=== PATIENT | male | born 1995 | race Caucasian/White ===

== ENCOUNTER 2023-09-26 17:39 | Emergency (ER) | payer OTHER ==
[2023-09-26 17:46] VITALS: BP 111/79; PULSE 111; RESP 20; TEMP 98.4; BMI 19.3
[2023-09-26] MEDS ORDERED: ACETAMINOPHEN INJECTION 100 ML IVPB ONE (19:30)
[2023-09-26] MEDS: ACETAMINOPHEN 1000 MG/100 ML BAG IVPB ONE (19:34)
[2023-09-26 19:45] LABS: BASO % 0.3 % (0-2.0); EOS % 0.6 % (0-4.5); HEMATOCRIT 33.2 % (35.4-49); HEMOGLOBIN 11.5 GM/dL (11.7-16.9); LYMPH % 16.3 % (8-40); MCH 27.9 pg (25.7-33.7); MCHC 34.5 g/dl (32.0-35.9); MEAN CELL VOLUME 80.8 fl (80-96); MEAN PLT VOLUME 7.3 fl (7.5-11.1); MONO % 12.7 % (3.8-10.2); NEUT % 70.1 % (42.8-82.8); PLATELET COUNT 390 10^3/uL (134-434); RBC 4.11 M/mm3 (4.00-5.60)
[2023-09-26 19:51] LABS: INR 1.22 (0.83-1.09); PROTHROMBIN TIME (PATIENT) 13.9 SEC (9.7-13.0)
[2023-09-26 19:53] LABS: POTASSIUM 4.2 mmol/L (3.5-5.1)
[2023-09-26 19:54] LABS: ACTIVATED PTT 32.3 SECONDS (25.2-36.5)
[2023-09-26 19:55] LABS: CALCIUM 9.1 mg/dL (8.5-10.1)
[2023-09-26 19:56] LABS: BLOOD UREA NITROGEN 7.9 mg/dL (7-18); MAGNESIUM 2.1 mg/dL (1.8-2.4)
[2023-09-26 20:00] LABS: BILIRUBIN,TOTAL 0.5 mg/dL (0.2-1)
[2023-09-26 20:01] LABS: TOT PROT 6.9 g/dl (6.4-8.2)
== END 2023-09-26 21:08 | disposition home or self-care (01) ==
LOC: JER 17:39
PROC: 3E033NZ Introduction of Analgesics, Hypnotics, Sedatives into Peripheral Vein, Percutaneous Approach (ICD-10-PCS; principal; 2023-09-26)
DX: K62.5 Hemorrhage of anus and rectum (principal); R10.32 Left lower quadrant pain; R63.4 Abnormal weight loss; K64.4 Residual hemorrhoidal skin tags; R53.1 Weakness; R00.0 Tachycardia, unspecified
CPT/HCPCS: 36415; 74177-TC; 80053; 82272; 83690; 83735; 85025; 85610; 85730; 86850; 86900; 86901; 93005; 93010; 99285-25; J0131; Q9967

== ENCOUNTER 2023-10-03 16:57 | Inpatient (IN) | payer OTHER ==
[2023-10-03] MEDS ORDERED: ACETAMINOPHEN INJECTION 100 ML IVPB ONE (18:40)
[2023-10-03] MEDS ORDERED: ONDANSETRON 4 MG/2 ML VIAL ONE (18:40)
[2023-10-03] MEDS ORDERED: FAMOTIDINE 20 MG/50 ML IVPB 20 MG/50 ML MG IVPB ONE (18:41)
[2023-10-03 18:45] LABS: HEMATOCRIT 32.4 % (35.4-49); HEMOGLOBIN 11.1 GM/dL (11.7-16.9); MCHC 34.3 g/dl (32.0-35.9); MEAN CELL VOLUME 78.8 fl (80-96); MEAN PLT VOLUME 7.2 fl (7.5-11.1); PLATELET COUNT 620 10^3/uL (134-434); RBC 4.12 M/mm3 (4.00-5.60); RDW 13.3 % (11.9-15.9); WHITE BLOOD COUNT 20.7 K/mm3 (4.0-10.0)
[2023-10-03 18:52] LABS: INR 1.3 (0.83-1.09); PROTHROMBIN TIME (PATIENT) 14.6 SEC (9.7-13.0)
[2023-10-03] MEDS: SODIUM CHLORIDE 0.9% 500 ML INFUS.BAG IV ONE (19:00)
[2023-10-03] MEDS: ONDANSETRON 4 MG/2 ML VIAL IVPUSH ONE (19:01)
[2023-10-03] MEDS: ACETAMINOPHEN 1000 MG/100 ML BAG IVPB ONE (19:01)
[2023-10-03] MEDS: FAMOTIDINE 20 MG/50 ML IVPB 20 MG/50 ML MG IVPB ONE (19:01)
[2023-10-03 19:11] LABS: POTASSIUM 4.3 mmol/L (3.5-5.1)
[2023-10-03 19:13] LABS: ALBUMIN 2.8 g/dl (3.4-5.0); BLOOD UREA NITROGEN 11.5 mg/dL (7-18); CALCIUM 9.4 mg/dL (8.5-10.1)
[2023-10-03 19:18] LABS: BILIRUBIN,TOTAL 0.5 mg/dL (0.2-1); TOT PROT 7.4 g/dl (6.4-8.2)
[2023-10-03] MEDS ORDERED: PIPERACILLIN/TAZOB 4.5 GM 4.5 GM/100 ML BAG IVPB ONE (19:41)
[2023-10-03] MEDS: PIPERACILLIN/TAZOB 4.5 GM 4.5 GM in DEXTROSE 5%-WATER 100 ML IVPB ONE (19:51)
[2023-10-03 20:56] LABS: OVALOCYTE 1+
[2023-10-03 21:04] LABS: PLATELET ESTIMATE INCREASED
[2023-10-03] MEDS ORDERED: morphine SULFATE 4 MG/ML VIAL ONE (23:58)
[2023-10-04] MEDS: morphine CARPU-JECT 4 MG/1 ML DISP.SYRIN IVPUSH ONE (00:04)
[2023-10-04] MEDS ORDERED: ACETAMINOPHEN 325 MG TABLET (FP) PO PRN (00:53)
[2023-10-04] MEDS ORDERED: traMADol HCL 50 MG TABLET PO PRN (00:54)
[2023-10-04] MEDS: DEXTROSE 5%-LACTATED RINGERS 1,000 ML IV SCH (01:49)
[2023-10-04 04:31] VITALS: BMI 16.0
[2023-10-04] MEDS: SODIUM CHLORIDE 1,000 ML IV STA (05:08)
[2023-10-04] MEDS: ACETAMINOPHEN 1000 MG/100 ML BAG IVPB ONE (05:36)
[2023-10-04] MEDS: PIPERACILLIN/TAZOB 3.375 GM 3.375 GM in DEXTROSE 5%-WATER - 50 ML IVPB SCH (05:56)
[2023-10-04] MEDS: SODIUM CHLORIDE 1,000 ML IV SCH (06:36)
[2023-10-04 07:24] LABS: HEMATOCRIT 25.6 % (35.4-49); HEMOGLOBIN 8.6 GM/dL (11.7-16.9); MCH 26.7 pg (25.7-33.7); MCHC 33.4 g/dl (32.0-35.9); MEAN CELL VOLUME 79.8 fl (80-96); MEAN PLT VOLUME 7.4 fl (7.5-11.1); PLATELET COUNT 467 10^3/uL (134-434); RBC 3.21 M/mm3 (4.00-5.60); RDW 13.1 % (11.9-15.9); WHITE BLOOD COUNT 18.1 K/mm3 (4.0-10.0)
[2023-10-04 07:39] LABS: POTASSIUM 4.1 mmol/L (3.5-5.1)
[2023-10-04 08:02] LABS: BLOOD UREA NITROGEN 7.1 mg/dL (7-18); MAGNESIUM 2.1 mg/dL (1.8-2.4)
[2023-10-04 08:05] LABS: CREATININE 0.7 mg/dL (0.55-1.3); PHOSPHOROUS 3.7 mg/dL (2.5-4.9)
[2023-10-04] MEDS: ACETAMINOPHEN 1000 MG/100 ML BAG IVPB PRN (08:07)
[2023-10-04 08:24] LABS: CALCIUM 7.7 mg/dL (8.5-10.1)
[2023-10-04 08:32] LABS: HIV INTERPRETATION NEGATIVE (NEGATIVE)
[2023-10-04 09:20] LABS: ERYTHROCYTE SEDIMENTATION RATE 52 mm/hr (0-10)
[2023-10-04] MEDS ORDERED: HYDROCORTISONE 2.5% TOPICAL CREAM 30 GM TUBE PR SCH (10:00)
[2023-10-04] MEDS: PANTOPRAZOLE SODIUM 40 MG VIAL IVPUSH SCH (10:05)
[2023-10-04 15:53] LABS: HEMATOCRIT 25.8 % (35.4-49); HEMOGLOBIN 8.6 GM/dL (11.7-16.9); MCH 26.6 pg (25.7-33.7); MCHC 33.1 g/dl (32.0-35.9); MEAN CELL VOLUME 80.4 fl (80-96); PLATELET COUNT 466 10^3/uL (134-434); RBC 3.21 M/mm3 (4.00-5.60); RDW 13.4 % (11.9-15.9); WHITE BLOOD COUNT 18.6 K/mm3 (4.0-10.0)
[2023-10-04] MEDS: [UNRECOGNIZED DRUG - OTHER] PR SCH (16:51)
[2023-10-04] MEDS: HYDROCORTISONE ACETATE PR SCH (16:51)
[2023-10-04] MEDS: CEFTRIAXONE 1 GM in DEXTROSE 5%-WATER - 50 ML IVPB SCH (17:17)
[2023-10-04 18:54] LABS: PH,URINE 5.5 (5.0-8.0); URINE APPEARANCE CLEAR; URINE BILIRUBIN NEGATIVE (NEGATIVE); URINE COLOR YELLOW; URINE GLUCOSE (UA) NEGATIVE (NEGATIVE); URINE KETONE 2+ (NEGATIVE); URINE LEUK ESTERASE NEGATIVE (NEGATIVE); URINE NITRITE NEGATIVE (NEGATIVE); URINE PROTEIN TRACE (NEGATIVE); URINE UROBILINOGEN 0.2 mg/dL (0.2-1.0)
[2023-10-04] MEDS: POLYETHYLENE GLYCOL (HEALTHYLAX) 3350 17 GM PACKET PO SCH (22:40)
[2023-10-05] MEDS ORDERED: PIPERACILLIN/TAZOB 3.375 GM 3.375 GM in DEXTROSE 5%-WATER - 50 ML IVPB SCH (02:00)
[2023-10-05] MEDS ORDERED: ACETYLCYSTEINE 20% 200MG/ML 30ML VIAL *FOR INJECTION USE ONLY IVPB PRN (05:37)
[2023-10-05] MEDS: ACETAMINOPHEN 1000 MG/100 ML BAG IVPB ONE (06:14)
[2023-10-05] MEDS ORDERED: SODIUM CHLORIDE 1,000 ML IV SCH (09:11)
[2023-10-05] MEDS: CEFTRIAXONE 1 GM in DEXTROSE 5%-WATER - 50 ML IVPB SCH (10:02)
[2023-10-05 10:31] LABS: HEMOGLOBIN 8.8 GM/dL (11.7-16.9); MCHC 32.5 g/dl (32.0-35.9); PLATELET COUNT 449 10^3/uL (134-434); RBC 3.38 M/mm3 (4.00-5.60); RDW 13.4 % (11.9-15.9); WHITE BLOOD COUNT 12.8 K/mm3 (4.0-10.0)
[2023-10-05 10:59] LABS: POTASSIUM 3.7 mmol/L (3.5-5.1)
[2023-10-05 11:16] LABS: BLOOD UREA NITROGEN 6.6 mg/dL (7-18); CALCIUM 8.2 mg/dL (8.5-10.1); CREATININE 0.8 mg/dL (0.55-1.3); MAGNESIUM 2.3 mg/dL (1.8-2.4)
[2023-10-05 11:17] LABS: TOT PROT 5.7 g/dl (6.4-8.2)
[2023-10-05 11:18] LABS: PHOSPHOROUS 2.4 mg/dL (2.5-4.9)
[2023-10-05 11:23] LABS: BILIRUBIN,TOTAL 0.4 mg/dL (0.2-1)
[2023-10-05 11:32] LABS: ALBUMIN 2.1 g/dl (3.4-5.0)
[2023-10-05] MEDS: WITCH HAZEL 50% (TUCKS) 40 PAD/JAR PAD TP PRN (12:25)
[2023-10-05] MEDS: NAPH,MB-DB/K PH,MBDB POWDER PACKET PO ONE (14:14)
[2023-10-06] MEDS: ACETAMINOPHEN 1000 MG/100 ML BAG IVPB PRN (01:05)
[2023-10-06 08:27] LABS: MAGNESIUM 2.1 mg/dL (1.8-2.4)
[2023-10-06 08:31] LABS: PHOSPHOROUS 2.1 mg/dL (2.5-4.9)
[2023-10-06 08:32] LABS: POTASSIUM 3.5 mmol/L (3.5-5.1)
[2023-10-06 08:34] LABS: CALCIUM 7.7 mg/dL (8.5-10.1)
[2023-10-06 08:35] LABS: ALBUMIN 1.8 g/dl (3.4-5.0); BLOOD UREA NITROGEN 3.8 mg/dL (7-18)
[2023-10-06 08:38] LABS: CREATININE 0.5 mg/dL (0.55-1.3)
[2023-10-06 08:39] LABS: BILIRUBIN,TOTAL 0.3 mg/dL (0.2-1); TOT PROT 5.2 g/dl (6.4-8.2)
[2023-10-06] MEDS: ACETAMINOPHEN 1000 MG/100 ML BAG IVPB ONE (08:45)
[2023-10-06 08:55] LABS: HEMATOCRIT 23.5 % (35.4-49); MCH 27.1 pg (25.7-33.7); MCHC 33.9 g/dl (32.0-35.9); MEAN CELL VOLUME 79.9 fl (80-96); PLATELET COUNT 414 10^3/uL (134-434); RBC 2.94 M/mm3 (4.00-5.60); RDW 13.4 % (11.9-15.9); RETICULOCYTES 1.87 % (0.5-1.5); WHITE BLOOD COUNT 11.8 K/mm3 (4.0-10.0)
[2023-10-06] MEDS ORDERED: ACETAMINOPHEN 325 MG TABLET (FP) PO PRN (12:29)
[2023-10-06] MEDS: AMINO ACIDS 4.25%/D5W 1,000 ML IV SCH (12:41)
[2023-10-06] MEDS: SODIUM PHOSPHATE - 20 MM in SODIUM CHLORIDE 500 ML IVPB ONE (12:41)
[2023-10-07] MEDS: ACETAMINOPHEN 1000 MG/100 ML BAG IVPB ONE (04:23)
[2023-10-07] MEDS: ACETAMINOPHEN 1000 MG/100 ML BAG IVPB PRN (09:50)
[2023-10-07 10:34] LABS: HEMOGLOBIN 9.1 GM/dL (11.7-16.9); MCH 26.8 pg (25.7-33.7); MCHC 33.8 g/dl (32.0-35.9); MEAN CELL VOLUME 79.4 fl (80-96); MEAN PLT VOLUME 6.7 fl (7.5-11.1); PLATELET COUNT 505 10^3/uL (134-434); RDW 13.5 % (11.9-15.9); WHITE BLOOD COUNT 10.9 K/mm3 (4.0-10.0)
[2023-10-07 10:50] LABS: CHLORIDE 102 mmol/L (98-107); POTASSIUM 3.4 mmol/L (3.5-5.1); SODIUM 137 mmol/L (136-145)
[2023-10-07 10:57] LABS: CALCIUM 8.2 mg/dL (8.5-10.1)
[2023-10-07 10:58] LABS: ALBUMIN 2.2 g/dl (3.4-5.0); ANION GAP 5 mmol/L (4-13); CO2 30 mmol/L (21-32); GLUCOSE,RANDOM 123 mg/dL (74-106)
[2023-10-07 11:01] LABS: CREATININE 0.7 mg/dL (0.55-1.3); PHOSPHOROUS 2.3 mg/dL (2.5-4.9); SGOT/AST 25 U/L (15-37); SGPT/ALT 27 U/L (13-61)
[2023-10-07 11:02] LABS: BILIRUBIN,TOTAL 0.4 mg/dL (0.2-1); TOT PROT 5.7 g/dl (6.4-8.2)
[2023-10-07 11:03] LABS: ALK PHOS 62 U/L (45-117); BLOOD UREA NITROGEN 2.5 mg/dL (7-18)
[2023-10-07] MEDS ORDERED: KCL 10 MEQ IVPB 10 MEQ/100 ML INFUS.BAG IVPB SCH (11:30)
[2023-10-07] MEDS: POTASSIUM PHOSPHATE 15 MM in SODIUM CHLORIDE 250 ML IVPB ONE (13:17)
[2023-10-07] MEDS ORDERED: MORPHINE SULFATE 2 MG/ML SYRINGE IVPUSH PRN (13:38)
[2023-10-07] MEDS: SODIUM CHLORIDE 1,000 ML IV SCH (16:11)
[2023-10-08 09:59] LABS: BASO % 0.3 % (0-2.0); EOS % 0.9 % (0-4.5); HEMOGLOBIN 8.8 GM/dL (11.7-16.9); LYMPH % 15.4 % (8-40); MCH 26.9 pg (25.7-33.7); MCHC 33.7 g/dl (32.0-35.9); MEAN CELL VOLUME 79.9 fl (80-96); MEAN PLT VOLUME 6.7 fl (7.5-11.1); MONO % 8.7 % (3.8-10.2); NEUT % 74.7 % (42.8-82.8); PLATELET COUNT 517 10^3/uL (134-434); RBC 3.25 M/mm3 (4.00-5.60); RDW 13.4 % (11.9-15.9)
[2023-10-08 10:15] LABS: CHLORIDE 105 mmol/L (98-107); POTASSIUM 3.5 mmol/L (3.5-5.1); SODIUM 138 mmol/L (136-145)
[2023-10-08 10:18] LABS: ANION GAP 6 mmol/L (4-13); CALCIUM 7.9 mg/dL (8.5-10.1); CO2 28 mmol/L (21-32); GLUCOSE,RANDOM 99 mg/dL (74-106); MAGNESIUM 1.9 mg/dL (1.8-2.4)
[2023-10-08 10:21] LABS: CREATININE 0.5 mg/dL (0.55-1.3); PHOSPHOROUS 2.2 mg/dL (2.5-4.9); SGOT/AST 30 U/L (15-37); SGPT/ALT 37 U/L (13-61)
[2023-10-08 10:23] LABS: BILIRUBIN,TOTAL 0.2 mg/dL (0.2-1); TOT PROT 5.7 g/dl (6.4-8.2)
[2023-10-08 10:24] LABS: ALK PHOS 57 U/L (45-117); BLOOD UREA NITROGEN 2.8 mg/dL (7-18)
[2023-10-08] MEDS: POTASSIUM PHOSPHATE 15 MM in SODIUM CHLORIDE 250 ML IVPB ONE (14:22)
[2023-10-09 09:42] LABS: BASO % 0.3 % (0-2.0); EOS % 0.6 % (0-4.5); HEMATOCRIT 29.7 % (35.4-49); HEMOGLOBIN 9.8 GM/dL (11.7-16.9); LYMPH % 17.7 % (8-40); MCH 26.5 pg (25.7-33.7); MCHC 32.9 g/dl (32.0-35.9); MEAN CELL VOLUME 80.4 fl (80-96); MEAN PLT VOLUME 6.8 fl (7.5-11.1); MONO % 7.4 % (3.8-10.2); PLATELET COUNT 574 10^3/uL (134-434); RBC 3.69 M/mm3 (4.00-5.60); RDW 13.2 % (11.9-15.9); WHITE BLOOD COUNT 13.5 K/mm3 (4.0-10.0)
[2023-10-09 09:49] LABS: INR 1.18 (0.83-1.09); PROTHROMBIN TIME (PATIENT) 13.3 SEC (9.7-13.0)
[2023-10-09 10:01] LABS: POTASSIUM 3.7 mmol/L (3.5-5.1)
[2023-10-09 10:21] LABS: CALCIUM 8.6 mg/dL (8.5-10.1)
[2023-10-09 10:22] LABS: BLOOD UREA NITROGEN 6.2 mg/dL (7-18)
[2023-10-09 10:25] LABS: CREATININE 0.6 mg/dL (0.55-1.3)
[2023-10-09] MEDS: ENOXAPARIN NA (PORCINE) 40 MG/0.4 ML DISP.SYRIN SQ SCH (14:32)
[2023-10-09] MEDS: methylPREDNISolone NA SUCC 40 MG/1 ML VIAL IVPUSH SCH (17:12)
[2023-10-09] MEDS: MESALAMINE 4 GM/60 ML ENEMA RC SCH (21:42)
[2023-10-10 10:01] LABS: HEMATOCRIT 30.1 % (35.4-49); HEMOGLOBIN 9.9 GM/dL (11.7-16.9); MCH 26.3 pg (25.7-33.7); MCHC 32.9 g/dl (32.0-35.9); MEAN CELL VOLUME 79.8 fl (80-96); MEAN PLT VOLUME 6.8 fl (7.5-11.1); PLATELET COUNT 662 10^3/uL (134-434); RBC 3.77 M/mm3 (4.00-5.60); RDW 13.7 % (11.9-15.9); WHITE BLOOD COUNT 16.1 K/mm3 (4.0-10.0)
[2023-10-10 10:27] LABS: POTASSIUM 4.2 mmol/L (3.5-5.1)
[2023-10-10 10:30] LABS: BLOOD UREA NITROGEN 12.4 mg/dL (7-18); CALCIUM 9.3 mg/dL (8.5-10.1)
[2023-10-10 10:33] LABS: CREATININE 0.5 mg/dL (0.55-1.3)
[2023-10-10 10:36] LABS: BILIRUBIN,TOTAL 0.2 mg/dL (0.2-1)
[2023-10-10 10:37] LABS: ALBUMIN 2.5 g/dl (3.4-5.0)
[2023-10-10] MEDS: MESALAMINE 800 MG TABLET.DR PO SCH (10:51)
[2023-10-10] MEDS: CALCIUM 500MG/VIT-D 200 UNITS COMBO TABLET (FP) PO SCH (10:51)
[2023-10-10] MEDS ORDERED: methylPREDNISolone NA SUCC 40 MG/1 ML VIAL IVPUSH SCH (13:15)
[2023-10-10] MEDS: IRON SUCROSE INJECTION 200 MG in SODIUM CHLORIDE 100 ML IVPB ONE (17:41)
[2023-10-11] MEDS: IRON SUCROSE INJECTION 200 MG in SODIUM CHLORIDE 100 ML IVPB ONE (06:00)
[2023-10-11 08:56] LABS: HEMATOCRIT 28.3 % (35.4-49); HEMOGLOBIN 9.2 GM/dL (11.7-16.9); MCH 26.2 pg (25.7-33.7); MCHC 32.6 g/dl (32.0-35.9); MEAN CELL VOLUME 80.3 fl (80-96); MEAN PLT VOLUME 6.7 fl (7.5-11.1); PLATELET COUNT 726 10^3/uL (134-434); RBC 3.53 M/mm3 (4.00-5.60); RDW 13.9 % (11.9-15.9); WHITE BLOOD COUNT 27.6 K/mm3 (4.0-10.0)
[2023-10-11 09:09] LABS: POTASSIUM 4.3 mmol/L (3.5-5.1)
[2023-10-11 09:15] LABS: CALCIUM 9.2 mg/dL (8.5-10.1); CREATININE 0.6 mg/dL (0.55-1.3)
[2023-10-11 09:17] LABS: ALBUMIN 2.6 g/dl (3.4-5.0); BLOOD UREA NITROGEN 13.8 mg/dL (7-18)
[2023-10-11 09:22] LABS: BILIRUBIN,TOTAL 0.2 mg/dL (0.2-1); TOT PROT 7.1 g/dl (6.4-8.2)
[2023-10-11 10:53] LABS: ANISOCYTOSIS 0; HELMET CELLS 0; HOWELL-JOLLY BODIES 0; MACROCYTOSIS 0; OVALOCYTE 0; ROULEAU 0; SICKELED CELLS 0; TARGET CELLS 0; TEAR DROP CELLS 0; TOXIC GRANULATION 0
[2023-10-12 08:27] LABS: HEMATOCRIT 25.7 % (35.4-49); HEMOGLOBIN 8.7 GM/dL (11.7-16.9); MCH 27.5 pg (25.7-33.7); MEAN CELL VOLUME 80.7 fl (80-96); MEAN PLT VOLUME 6.7 fl (7.5-11.1); PLATELET COUNT 688 10^3/uL (134-434); RBC 3.19 M/mm3 (4.00-5.60); RDW 13.7 % (11.9-15.9); WHITE BLOOD COUNT 25.1 K/mm3 (4.0-10.0)
[2023-10-12 08:28] LABS: POTASSIUM 4.8 mmol/L (3.5-5.1)
[2023-10-12 08:36] LABS: ALBUMIN 2.5 g/dl (3.4-5.0); BLOOD UREA NITROGEN 11.1 mg/dL (7-18); CALCIUM 9.2 mg/dL (8.5-10.1)
[2023-10-12 08:39] LABS: CREATININE 0.6 mg/dL (0.55-1.3)
[2023-10-12 08:41] LABS: TOT PROT 6.6 g/dl (6.4-8.2)
[2023-10-12] MEDS: predniSONE 20 MG TABLET (UD) PO SCH (09:02)
[2023-10-12 09:11] LABS: BILIRUBIN,TOTAL 0.3 mg/dL (0.2-1)
[2023-10-12 09:57] LABS: ANISOCYTOSIS 3+; MACROCYTOSIS 0
[2023-10-12] MEDS: PANTOPRAZOLE 20 MG TABLET PO SCH (10:12)
[2023-10-12 17:11] LABS: GLIADIN ANTIBODY IGA 5 units (0-19); GLIADIN ANTIBODY IGG 2 units (0-19); TRANSGLUTAMINASE IGG 3 U/mL (0-5)
[2023-10-13 10:05] LABS: HEMATOCRIT 29.4 % (35.4-49); HEMATOCRIT 30.3 % (35.4-49); HEMOGLOBIN 9.9 GM/dL (11.7-16.9); MCH 26.7 pg (25.7-33.7); MCH 27.7 pg (25.7-33.7); MCHC 32.5 g/dl (32.0-35.9); MCHC 33.9 g/dl (32.0-35.9); MEAN CELL VOLUME 81.6 fl (80-96); MEAN CELL VOLUME 82.2 fl (80-96); MEAN PLT VOLUME 6.4 fl (7.5-11.1); MEAN PLT VOLUME 6.6 fl (7.5-11.1); PLATELET COUNT 757 10^3/uL (134-434); PLATELET COUNT 774 10^3/uL (134-434); RBC 3.61 M/mm3 (4.00-5.60); RBC 3.68 M/mm3 (4.00-5.60); RDW 14.4 % (11.9-15.9); RDW 14.5 % (11.9-15.9); WHITE BLOOD COUNT 22.7 K/mm3 (4.0-10.0); WHITE BLOOD COUNT 23.4 K/mm3 (4.0-10.0)
[2023-10-13 10:24] LABS: CHLORIDE 99 mmol/L (98-107); POTASSIUM 3.8 mmol/L (3.5-5.1); SODIUM 133 mmol/L (136-145)
[2023-10-13 10:31] LABS: ALBUMIN 2.7 g/dl (3.4-5.0); ANION GAP 6 mmol/L (4-13); BLOOD UREA NITROGEN 15.7 mg/dL (7-18); CALCIUM 9.2 mg/dL (8.5-10.1); CO2 28 mmol/L (21-32)
[2023-10-13 10:32] LABS: CREATININE 0.7 mg/dL (0.55-1.3); GLUCOSE,RANDOM 121 mg/dL (74-106); SGOT/AST 22 U/L (15-37)
[2023-10-13 10:34] LABS: BILIRUBIN,TOTAL 0.3 mg/dL (0.2-1); SGPT/ALT 50 U/L (13-61); TOT PROT 6.8 g/dl (6.4-8.2)
[2023-10-13 10:35] LABS: ALK PHOS 71 U/L (45-117)
[2023-10-13 10:45] LABS: ANISOCYTOSIS 3+; MACROCYTOSIS 0
[2023-10-13] MEDS: LACTATED RINGERS SOLUTION 1,000 ML/1,000 ML INFUS.BAG IV SCH (14:07)
[2023-10-14 08:29] LABS: HEMATOCRIT 29.1 % (35.4-49); HEMOGLOBIN 9.7 GM/dL (11.7-16.9); MCH 26.8 pg (25.7-33.7); MCHC 33.2 g/dl (32.0-35.9); MEAN CELL VOLUME 80.8 fl (80-96); MEAN PLT VOLUME 6.3 fl (7.5-11.1); PLATELET COUNT 710 10^3/uL (134-434); WHITE BLOOD COUNT 22.5 K/mm3 (4.0-10.0)
[2023-10-14 08:43] LABS: POTASSIUM 4.4 mmol/L (3.5-5.1)
[2023-10-14 08:49] LABS: ALBUMIN 2.5 g/dl (3.4-5.0); BLOOD UREA NITROGEN 14.1 mg/dL (7-18)
[2023-10-14 08:51] LABS: CREATININE 0.5 mg/dL (0.55-1.3)
[2023-10-14 08:53] LABS: BILIRUBIN,TOTAL 0.4 mg/dL (0.2-1); TOT PROT 6.5 g/dl (6.4-8.2)
[2023-10-15 08:37] LABS: POTASSIUM 4.3 mmol/L (3.5-5.1)
[2023-10-15 08:43] LABS: HEMATOCRIT 28.3 % (35.4-49); HEMOGLOBIN 9.2 GM/dL (11.7-16.9); MCH 26.7 pg (25.7-33.7); MCHC 32.4 g/dl (32.0-35.9); MEAN CELL VOLUME 82.4 fl (80-96); MEAN PLT VOLUME 6.6 fl (7.5-11.1); PLATELET COUNT 668 10^3/uL (134-434); RBC 3.44 M/mm3 (4.00-5.60); WHITE BLOOD COUNT 18.6 K/mm3 (4.0-10.0)
[2023-10-15 08:57] LABS: ALBUMIN 2.5 g/dl (3.4-5.0)
[2023-10-15 08:58] LABS: CALCIUM 9.1 mg/dL (8.5-10.1)
[2023-10-15 08:59] LABS: BLOOD UREA NITROGEN 13.5 mg/dL (7-18)
[2023-10-15 09:05] LABS: CREATININE 0.6 mg/dL (0.55-1.3)
[2023-10-15 09:06] LABS: TOT PROT 6.3 g/dl (6.4-8.2)
[2023-10-15 09:07] LABS: BILIRUBIN,TOTAL 0.4 mg/dL (0.2-1)
[2023-10-16 09:20] LABS: POTASSIUM 4.1 mmol/L (3.5-5.1)
[2023-10-16 09:26] LABS: ALBUMIN 2.4 g/dl (3.4-5.0); BLOOD UREA NITROGEN 14.8 mg/dL (7-18); CALCIUM 8.8 mg/dL (8.5-10.1)
[2023-10-16 09:28] LABS: CREATININE 0.6 mg/dL (0.55-1.3)
[2023-10-16 09:29] LABS: HEMATOCRIT 27.1 % (35.4-49); HEMOGLOBIN 8.9 GM/dL (11.7-16.9); MCH 26.7 pg (25.7-33.7); MCHC 32.9 g/dl (32.0-35.9); MEAN CELL VOLUME 81.3 fl (80-96); MEAN PLT VOLUME 6.7 fl (7.5-11.1); PLATELET COUNT 643 10^3/uL (134-434); RBC 3.33 M/mm3 (4.00-5.60); WHITE BLOOD COUNT 12.7 K/mm3 (4.0-10.0)
[2023-10-16 09:30] LABS: BILIRUBIN,TOTAL 0.5 mg/dL (0.2-1); TOT PROT 6.3 g/dl (6.4-8.2)
[2023-10-16 16:02] VITALS: RESP 18
[2023-10-17 13:12] LABS: HEMATOCRIT 24.7 % (35.4-49); HEMOGLOBIN 8.5 GM/dL (11.7-16.9); MCH 28.4 pg (25.7-33.7); MCHC 34.6 g/dl (32.0-35.9); MEAN CELL VOLUME 82.2 fl (80-96); PLATELET COUNT 572 10^3/uL (134-434); WHITE BLOOD COUNT 8.5 K/mm3 (4.0-10.0)
[2023-10-18 08:27] VITALS: BP 121/70; PULSE 106; TEMP 98.8
[2023-10-18 08:46] LABS: HEMATOCRIT 28.4 % (35.4-49); HEMOGLOBIN 9.4 GM/dL (11.7-16.9); MEAN CELL VOLUME 81.8 fl (80-96); MEAN PLT VOLUME 6.5 fl (7.5-11.1); PLATELET COUNT 661 10^3/uL (134-434); RBC 3.47 M/mm3 (4.00-5.60); RDW 16.6 % (11.9-15.9); WHITE BLOOD COUNT 12.9 K/mm3 (4.0-10.0)
== END 2023-10-18 13:55 | disposition home or self-care (01) | DRG 245 ==
LOC: JER 16:57 → JERBED 23:25 → OBSVTOIN 10-04 00:51 → J4W 10-04 04:08 → J5S 10-04 21:24
PROVIDERS: ADMIT Internal Medicine; ATTEND Internal Medicine
PROC: 0DBN8ZX Excision of Sigmoid Colon, Via Natural or Artificial Opening Endoscopic, Diagnostic (ICD-10-PCS; principal; 2023-10-06 12:00)
DX: K51.90 Ulcerative colitis, unspecified, without complications (principal); E43 Unspecified severe protein-calorie malnutrition; R64 Cachexia; E87.1 Hypo-osmolality and hyponatremia; D50.9 Iron deficiency anemia, unspecified; E83.39 Other disorders of phosphorus metabolism; Z68.1 Body mass index [BMI] 19.9 or less, adult
CPT/HCPCS: 36415; 74177-TC; 80048; 80053; 81003; 82272; 82306; 82728; 82784; 83516; 83540; 83550; 83605; 83615; 83735; 84100; 84466; 85025; 85027; 85045; 85610; 85651; 86140; 86256; 86480; 86671; 86682; 86704; 86780; 86803; 86850; 86900; 86901; 87040; 87045; 87046; 87086; 87186; 87205; 87209; 87324; 87340; 87389; 87449; 87517; 88305-TC; 93005; 93010; 99285-25; G0378; J0131; J1756; Q9967